=== PATIENT | female | born 1950 | race Caucasian/White ===

== ENCOUNTER → 2019-10-07 | Outpatient (CLI) | payer OTHER | LOC: SJCVCIMAG 08:17 | DX: R00.2 Palpitations (principal); R07.9 Chest pain, unspecified; R06.09 Other forms of dyspnea; E78.5 Hyperlipidemia, unspecified ==

== ENCOUNTER → 2020-07-12 | Outpatient (CLI) | payer OTHER | LOC: CAT 11:01 | PROVIDERS: ATTEND Internal Medicine Cardiovascular Disease | DX: Z13.6 Encounter for screening for cardiovascular disorders (principal); I25.10 Atherosclerotic heart disease of native coronary artery without angina pectoris; E78.00 Pure hypercholesterolemia, unspecified ==